=== PATIENT | male | born 1990 | race Caucasian/White ===

== ENCOUNTER 2024-02-28 21:49 | Emergency (ER) | payer MEDICAID ==
[~2024-02-28] VITALS: Ht 185.4 cm; Wt 95.3 kg
[~2024-02-28 21:49] MED LIST: PERCOCET 325 MG1 TA7 PO
[2024-02-28] MEDS ORDERED: methylPREDNISolone sod succ 125 MG VIAL IM ONE (22:20)
[2024-02-28] MEDS ORDERED: Albuterol Sulf/Ipratropium 3 ML VIAL NEB ONE (22:20)
[2024-02-28] MEDS ORDERED: PREDNISONE20 M1 PO (23:15)
== END 2024-02-28 23:20 | disposition home or self-care (01) ==
LOC: ED 21:49
DX: J45.901 Unspecified asthma with (acute) exacerbation (principal); Z88.0 Allergy status to penicillin